=== PATIENT | female | born 1975 | race Caucasian/White ===

== ENCOUNTER 2016-06-28 07:32 | Emergency (ER) | payer SELFPAY ==
[~2016-06-28] VITALS: Ht 177.8 cm; Wt 100.0 kg
[~2016-06-28 07:32] MED LIST: FLUO-1 PO; ZOFR4TAB3 SL
[2016-06-28 07:33] VITALS: BP 128/76; PULSE 100; RESP 20; TEMP 97.7; O2SAT 96
--- NOTE | 2016-06-28 10:02 | PD ---
HPI Chief Complaint: Psychiatric Symptoms Time Seen by Provider: 09:44 Travel History International Travel<30 days: No Contact w/Intl Traveler<30days: No Traveled to known affect area: No History of Present Illness HPI Is a 41-year-old woman presents to the emergency department complaining of increased depression symptoms. She states "I'm here for mental evaluation". She says she is the sole caregiver for her with TBI and significant symptoms including frontal lobe dementia. This morning, increasingly stressful on her. Under significant financial pressures are about to become homeless and 2 weeks. She had difficulty keeping a job because of medical appointments. Because of his frontal lobe dementia he also is mean to her at times, and forgetful. States that she has had a history of severe panic attacks and depression in the past. She 6 months clean off of alcohol. She states that she likes to be able to do so treatment for her depression is worse and she becomes more suicidal. She doesn't know what to do. She has no mental health resources are family support in the area. She states she's been crying all the time, having panic attacks, being exhausted been unable to sleep. History Past Medical History Narrative Medical Remote history of depression and panic attacks Eosinophilia esophagitis History of alcoholism, clean 8 months LMP: AT THIS TIME : 4 Para: 4 Social History Alcohol Use: Yes (HX OF, SOBER NOW) Tobacco Use: Yes (1 PPD) Allergies-Medications (Allergen,Severity, Reaction): Coded Allergies: Librium (Verified Allergy, Severe, AGGITATION, 06/28/16) Sulfa (Verified Allergy, Severe, facial swelling, 06/28/16) Contrast Media (Verified Allergy, Unknown, 06/28/16) Shellfish (Verified Allergy, Unknown, 06/28/16) Reported Meds & Prescriptions Reported Meds & Active Scripts Active No Active Prescriptions or Reported Medications Review of Systems Except as stated in HPI: all other systems reviewed are Neg Physical Exam Narrative GENERAL: Well-appearing 41-year-old woman, tearful and sad. SKIN: Warm and dry. CARDIOVASCULAR: Regular rate and rhythm. No murmur appreciated. RESPIRATORY: No accessory muscle use. Clear to auscultation. Breath sounds equal bilaterally. GASTROINTESTINAL: Abdomen soft, non-tender, nondistended. Hepatic and splenic margins not palpable. MUSCULOSKELETAL: No obvious deformities. No edema. NEUROLOGICAL: Awake and alert. No obvious cranial nerve deficits. Motor grossly within normal limits. Normal speech. PSYCHIATRIC: Tearful and sad. Denies SI. Data Data Last Documented VS Vital Signs Date Time Temp Pulse Resp B/P Pulse Ox O2 Delivery O2 Flow Rate FiO2 06/28/16 07:33 97.7 100 20 128/76 96 Room Air Orders Psych Screen (06/28/16 09:55) MDM Medical Decision Making Medical Screen Exam Complete: Yes Emergency Medical Condition: Yes Differential Diagnosis Depression, adjustment disorder, other Narrative Course Medical decision making INITIAL: 41-year-old woman presents emergent arm with severe increasing depression symptoms, despondency, no SI, here for mental health evaluation. Scripts No Active Prescriptions or Reported Meds Bijan Boyle MD Jun 28, 2016 10:02
[2016-06-28 11:00] VITALS: BP 120/64; PULSE 96; RESP 14; O2SAT 99
== END 2016-06-28 12:40 | disposition left against medical advice (07) ==
LOC: NEPC 07:32
DX: F32.9 Major depressive disorder, single episode, unspecified (principal); F41.0 Panic disorder [episodic paroxysmal anxiety]; Z72.0 Tobacco use
CPT/HCPCS: 99283

== ENCOUNTER 2016-09-26 13:15 | Emergency (ER) | payer SELFPAY ==
[~2016-09-26] VITALS: Ht 177.8 cm; Wt 101.5 kg
[2016-09-26 13:19] VITALS: BP 117/72; PULSE 79; RESP 18; TEMP 98.5; O2SAT 98
--- NOTE | 2016-09-26 13:38 | PD ---
Physical Exam Date Seen by Provider: Sep 26, 2016 Time Seen by Provider: 13:35 Narrative 41 year old female presents to the emergency department for evaluation of abscess to the left groin that was incised and drained yesterday. She reports she could not afford antibiotics and has not yet started them. No fevers. She reports history of hidradenitis suppurative. Patient awaiting bed placement. Data Data Last Documented VS Vital Signs Date Time Temp Pulse Resp B/P Pulse Ox O2 Delivery O2 Flow Rate FiO2 09/26/16 13:19 98.5 79 18 117/72 98 MDM Supervised Visit with SHELLI: No Scripts No Active Prescriptions or Reported Meds Shirley Kelley Sep 26, 2016 13:38
--- NOTE | 2016-09-26 13:50 | PD ---
HPI . L inner thigh Chief Complaint: Wound/Suture/Staple Re-Check Time Seen by Provider: 14:01 Travel History International Travel<30 days: No Contact w/Intl Traveler<30days: No Traveled to known affect area: No History of Present Illness HPI 41-year-old female here with complaints of left thigh abscess. Patient was just seen in [place] yesterday and and had incision and drainage performed on an abscess in her left inner thigh. Packing was placed and it has been draining since. Patient says that no one told her that this is supposed to drain. It is improved since yesterday. Unfortunately she has not been able to fill her prescription for clindamycin and Thurmont for pain. She has a sulfa allergy and cannot tolerate Bactrim. Denies any fever or chills. PFSH Past Medical History Anxiety: Yes Depression: Yes Diminished Hearing: No Gastrointestinal Disorders: Yes (Esophagitis) GERD: Yes Genitourinary: Yes (BLADDER PROBLEMS ) ?: Not LMP: 09/06/16 : 4 Para: 4 Tubal Ligation: Yes Past Surgical History Section: Yes Gynecologic Surgery: Yes (C Section, TUBAL LIGATION) Other Surgery: Yes (Breast Reduction) Social History Alcohol Use: Yes (HX OF, SOBER NOW) Tobacco Use: Yes (1 PPD) Substance Use: Yes (HX ALCOHOL ABUSE) Allergies-Medications (Allergen,Severity, Reaction): Coded Allergies: Librium (Verified Allergy, Severe, AGGITATION, 06/28/16) Sulfa (Verified Allergy, Severe, facial swelling, 09/26/16) Contrast Media (Verified Allergy, Unknown, 09/26/16) Shellfish (Verified Allergy, Unknown, 09/26/16) Reported Meds & Prescriptions Reported Meds & Active Scripts Active No Active Prescriptions or Reported Medications Review of Systems General / Constitutional: No: Fever Eyes: No: Visual changes HENT: No: Headaches Cardiovascular: No: Chest Pain or Discomfort Respiratory: No: Shortness of Breath Gastrointestinal: No: Abdominal Pain Genitourinary: No: Dysuria Musculoskeletal: No: Pain Skin: Positive Other (left inner thigh abscess ), No Rash Neurologic: No: Weakness Psychiatric: No: Depression Endocrine: No: Polydipsia Hematologic/Lymphatic: No: Easy Bruising Physical Exam Narrative GENERAL: AAO x 3, no acute distress, Well-nourished, well-developed patient. SKIN: Warm and dry. No visible rashes or bruising. left inner thigh with small 1.4 cm induration that is open with packing present, there is a zone of inflammation extending out about 3 cm. There is very mild erythema, HEAD: Normocephalic and atraumatic. EYES: No scleral icterus. No injection or drainage. ENT: No nasal drainage noted. Mucous membranes pink. Airway patent. NECK: Supple, trachea midline. No JVD. CARDIOVASCULAR: Regular rate and rhythm without murmurs, gallops, or rubs. RESPIRATORY: Breath sounds equal bilaterally. No accessory muscle use. No rhonchi or rales. GASTROINTESTINAL: Abdomen soft, non-tender, nondistended. EXTREMITIES: No cyanosis or edema. BACK: Nontender without obvious deformity. No CVA tenderness. PSYCH: AAO x 3, normal affect. Data Data Last Documented VS Vital Signs Date Time Temp Pulse Resp B/P Pulse Ox O2 Delivery O2 Flow Rate FiO2 09/26/16 13:19 98.5 79 18 117/72 98 MDM Medical Decision Making Medical Screen Exam Complete: Yes Emergency Medical Condition: No Medical Record Reviewed: Yes Differential Diagnosis inner thigh abscess, cellulitis, less likely folliculitis Narrative Course 41-year-old female here with complaints of left thigh abscess. Patient was just seen in [place] yesterday and and had incision and drainage performed on an abscess in her left inner thigh. Packing was placed and it has been draining since. Patient says that no one told her that this is supposed to drain. It is improved since yesterday. Unfortunately she has not been able to fill her prescription for clindamycin and Thurmont for pain. She has a sulfa allergy and cannot tolerate Bactrim. Denies any fever or chills. Area looks good. Advised patient that she will need to get rx filled. Packing will need to be changed in 24-48 hours. She will be traveling back to [place]. She can follow up there. A medical screening exam was performed: At the time of evaluation the presenting medical condition was determined not to be of an emergent nature. The patient was given the option of receiving additional care, but declined. Patient was given options for additional community resources from which to obtain care. The Patient Has Been advised to seek medical attention for their presenting complaint. The patient has been advised to return to the ER at any time if an emergent condition develops. Diagnosis Primary Impression: Encounter for medical screening examination Scripts No Active Prescriptions or Reported Meds Condition: Stable Irena Jiang Sep 26, 2016 13:50
== END 2016-09-26 14:34 | disposition left against medical advice (07) ==
LOC: NEPK 13:15
DX: L02.416 Cutaneous abscess of left lower limb (principal); F17.200 Nicotine dependence, unspecified, uncomplicated; Z98.890 Other specified postprocedural states; Z86.59 Personal history of other mental and behavioral disorders; Z87.19 Personal history of other diseases of the digestive system; Z87.448 Personal history of other diseases of urinary system
CPT/HCPCS: 99281